=== PATIENT | male | born 1945 | race Caucasian/White ===

== ENCOUNTER 2024-03-09 19:09 | Emergency (ER) | payer MEDICARE, OTHER ==
[2024-03-09 19:21] VITALS: TEMP 96.8
[2024-03-09 19:30] LABS: Absolute Neutrophil Ct (ANC) 8.94 x10^3/uL (1.78-5.38); BASOPHIL % 0.3 % (0.2-1.2); Basophil (Absolute #) 0.03 x10^3/uL (0.01-0.08); Eosinophil % 0.7 % (0.8-7.0); Eosinophil (Absolute #) 0.07 x10^3/uL (0.04-0.54); Hematocrit 42.2 % (40.1-51.0); Hemoglobin 12.7 g/dL (13.7-17.5); IMMATURE GRAN # 0.06 x10^3u/L (0.001-0.031); IMMATURE GRAN % 0.6 % (0.001-0.429); Lymphocyte (Absolute #) 0.25 x10^3/uL (1.32-3.57); Lymphocytes % 2.6 % (21.8-53.1); Mean Cell Volume 78.3 fL (79.0-92.2); Mean Corpuscular Hemoglobin 23.6 pg (25.7-32.2); Mean Corpuscular Hgb Concent. 30.1 g/dL (32.3-36.5); Mean Platelet Volume 9.5 fL (9.4-12.4); Monocyte (Absolute #) 0.45 x10^3/uL (0.30-0.82); Monocytes % 4.6 % (5.3-12.2); Neutrophil % 91.2 % (34.0-67.9); Platelet Count 321 x10^3/uL (163-337); Red Blood Count 5.39 x10^6/uL (4.63-6.08); White Blood Count 9.8 x10^3/uL (4.23-9.07)
--- NOTE | 2024-03-09 19:32 | ERPHSYRPT ---
- History of Present Illness Source: patient, EMS Exam Limitations: no limitations Patient Subjective Stated Complaint: EMS REPORTS, " CALLED 911 AFTER PATIENT SLID DOWN OUT OF RECLINER AND BLOOD SUGAR WAS 42. SHE GAVE ORAL GLUCOSE AND WHEN WE ARRIVED IT WAS UP TO 56. WE GAVE MORE ORAL GLUCOSE AND IT WAS UP TO 76. HE DID NOT LOSE CONSCIOUSSNESS, BUT WAS SLIGHTLY ALTERED HE IS MORE ALERT NOW. RESCUE SAID HE HAD BILATERAL WHEEZES SO HE WAS GIVEN A DUONEB." Triage Nursing Assessment: A&OX3, SKIN P/W/D, RESP EVEN UNLABORED, 02 ON PER GA. ARRIVED VIA AMBULANCE. PLEASANT COOPERATIVE. Physician History: Patient has a history of hypoglycemia. EMS has been called to his residence multiple times. He is presenting now and no distress. He is alert and oriented he says he feels fine. He does not remember a lot of what happened. Evidently he was getting hypoglycemic and having some symptoms his gave him some oral glucose and that helped him a little bit but then she called EMS. They gave him some more and his sugars are up to an acceptable level. He is on glipizide and metformin.He does not have any infectious symptoms. He said that he did not eat lunch today. He does not think that he took extra medication. Allergies/Adverse Reactions: Penicillins Allergy (Verified 03/09/24 19:27) Home Medications: Atorvastatin Calcium 1 tab PO DAILY 03/09/24 [History] Clopidogrel Bisulfate [Clopidogrel] 75 mg PO DAILY 03/09/24 [History] Fenofibrate Nanocrystallized [Fenofibrate] 145 mg PO DAILY 03/09/24 [History] Finasteride 5 mg [Proscar 5 MG] 1 tab PO DAILY 03/09/24 [History] Glyburide/Metformin HCl [Glyburide-Metformin 5-500 mg] 1 tab PO DAILY 03/09/24 [History] Sacubitril/Valsartan [Entresto 24 mg-26 mg Tablet] 1 tab PO DAILY 03/09/24 [History] Tamsulosin HCl 0.4 mg [Flomax 0.4 MG] 1 cap PO DAILY 03/09/24 [History] Hx Tetanus, Diphtheria Vaccination/Date Given: No Hx Influenza Vaccination/Date Given: No Hx Pneumococcal Vaccination/Date Given: No Immunizations Up to Date: No Travel Risk - International Travel Have you traveled outside of the country in past 3 weeks: No - Emerging Infectious Disease Are you exhibiting symptoms associated with any current EIDs: No - Review of Systems Constitutional: No Symptoms Eyes: No Symptoms Ears, Nose, & Throat: No Symptoms Respiratory: No Symptoms Cardiac: No Symptoms Abdominal/Gastrointestinal: No Symptoms - Past Medical History Pertinent Past Medical History: Yes Neurological History: No Pertinent History ENT History: No Pertinent History Cardiac History: No Pertinent History Respiratory History: No Pertinent History Endocrine Medical History: Hypoglycemia Musculoskeletal History: No Pertinent History GI Medical History: No Pertinent History History: No Pertinent History Psycho-Social History: No Pertinent History Male Reproductive Disorders: No Pertinent History - Past Surgical History Past Surgical History: Yes Neuro Surgical History: No Pertinent History Cardiac: No Pertinent History Respiratory: No Pertinent History Gastrointestinal: No Pertinent History Genitourinary: No Pertinent History Musculoskeletal: Orthopedic Surgery Male Surgical History: No Pertinent History Other Surgical History: RIGHT SHOULDER - Social History Smoking Status: Never smoker Exposure to second hand smoke: No Drug Use: none - Social Determinants of Health Will the patient participate in the screening: Declined to provide - Nursing Vital Signs Nursing Vital Signs: Initial Vital Signs Blood Pressure 127/92 03/09/24 19:10 O2 Sat by Pulse Oximetry 89 L 03/09/24 19:10 Pain Scale Pain Intensity 0 - Physical Exam General Appearance: no apparent distress, alert Eye Exam: PERRL/EOMI Respiratory Exam: normal breath sounds, No respiratory distress Cardiovascular Exam: regular rate/rhythm Gastrointestinal/Abdomen Exam: soft, No tenderness Neurologic Exam: alert, oriented x 3, cooperative, 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, normal mood/affect, nml cerebellar function, nml station & gait Skin Exam: normal color SpO2: 100 - Course Nursing assessment & vital signs reviewed: Yes Ordered Tests: Active Orders 24 hr Category Date Time Status BMP Stat Lab 03/09/24 19:28 Completed CBC W DIFF Stat Lab 03/09/24 19:28 Completed POCT GLUCOSE Stat Lab 03/09/24 21:04 Completed Lab/Rad Data: Laboratory Result Diagrams 03/09/24 19:28 03/09/24 19:28 Laboratory Results 03/09/24 03/09/24 03/09/24 Range/Units 21:04 19:28 19:28 WBC 9.8 H (4.23-9.07) x10^3/uL RBC 5.39 (4.63-6.08) x10^6/uL Hgb 12.7 L (13.7-17.5) g/dL Hct 42.2 (40.1-51.0) % MCV 78.3 L (79.0-92.2) fL MCH 23.6 L (25.7-32.2) pg MCHC 30.1 L (32.3-36.5) g/dL RDW 16.0 H (11.6-14.4) % Plt Count 321 (163-337) x10^3/uL MPV 9.5 (9.4-12.4) fL Gran % 91.2 H (34.0-67.9) % Immature Gran % (Auto) 0.6 H (0.001-0.429) % Nucleat RBC Rel Count 0.0 (0.00-0.2) % Eos # (Auto) 0.07 (0.04-0.54) x10^3/uL Immature Gran # (Auto) 0.06 H (0.001-0.031) x10^3u/L Absolute Lymphs (auto) 0.25 L (1.32-3.57) x10^3/uL Absolute Monos (auto) 0.45 (0.30-0.82) x10^3/uL Absolute Nucleated RBC 0.00 (0.00-0.012) x10^3u/L Lymphocytes % 2.6 L (21.8-53.1) % Monocytes % 4.6 L (5.3-12.2) % Eosinophils % 0.7 L (0.8-7.0) % Basophils % 0.3 (0.2-1.2) % Absolute Granulocytes 8.94 H (1.78-5.38) x10^3/uL Basophils # 0.03 (0.01-0.08) x10^3/uL Sodium 141 (135-145) mmol/L Potassium 4.0 (3.5-5.1) mmol/L Chloride 107 (98-107) mmol/L Carbon Dioxide 28 (22-30) mmol/L Anion Gap 10.9 (5-15) MEQ/L BUN 27 H (9-20) mg/dL Creatinine 1.39 H (0.66-1.25) mg/dL Estimated GFR 51.6 ML/MIN Glucose 79 (74-106) mg/dL POC Glucometer 83 (74 to 106) mg/dL Calcium 9.2 (8.4-10.2) mg/dL - Progress Progress: improved Progress Note: Patient was stable throughout stay. We observed him for about an hour. I offered him some food he did not want any. We monitored his glucose.. We got another level and is around 66. He was then given some food To eat. We monitor ed him further. After eating his sugars were hanging around 85. I went ahead and just gave him a half an amp of D50.03/09/24 19:33 03/09/24 20:37 03/09/24 21:10 Medical Desision Making - Independent Historian Additional History obtained from: EMS - Social Determinants of Health Pt's dx & treatment plan are significantly limited by SDOH: limited education Limited access to: transportation - Diagnostic Testing Diagnostic test were ordered, analyzed, and reviewed by me: Yes - Risk of complications Low Risk: Low risk of morbidity from additional dx testing or treatment - Departure Departure Disposition: Home Clinical Impression: Hypoglycemia due to type 2 diabetes mellitus Condition: Stable Critical Care Time: No Referrals: NELA MORALES [Primary Care Provider] - Follow up/PCP as directed
[2024-03-09 19:43] LABS: ANION GAP 10.9 MEQ/L (5-15); Calcium 9.2 mg/dL (8.4-10.2); Creatinine 1 1.39 mg/dL (0.66-1.25); EST GLOMERULAR FILTRATION RATE 51.6 ML/MIN
[2024-03-09] MEDS ORDERED: D50W 50 ml Abboject IV ONE (21:09)
[2024-03-09] MEDS: D50W 50 ml Abboject IV ONE (21:11)
[2024-03-09 22:02] VITALS: PULSE 98; RESP 16
[2024-03-09 22:36] VITALS: BP 160/77
[2024-03-09 22:44] LABS: Slide Review 1 YES
[2024-03-09 22:52] VITALS: O2SAT 100
== END 2024-03-09 23:00 | disposition home or self-care (01) ==
LOC: ED 19:09
DX: E11.649 Type 2 diabetes mellitus with hypoglycemia without coma (principal); Z79.02 Long term (current) use of antithrombotics/antiplatelets; Z79.84 Long term (current) use of oral hypoglycemic drugs; Z79.899 Other long term (current) drug therapy; Z55.9 Problems related to education and literacy, unspecified; Z59.82 Transportation insecurity
CPT/HCPCS: 36415; 80048; 82947; 85025; 96374; 99284